=== PATIENT | male | born 1975 | race Caucasian/White ===

== ENCOUNTER → 2020-11-04 12:56 | Outpatient (CLI) | payer OTHER, SELFPAY ==
[2019-08-14 10:23] VITALS: BMI 32.2
--- NOTE | 2020-11-04 13:00 | CT_ITS ---
STUDY: CT ABDOMEN WITH CONTRAST REASON FOR EXAM: Male, 45 years old. ABD ABSCESS/INFECTION SUSPECTED RADIATION DOSAGE (If Supplied By Facility): CTDIvol = ( 16.435 ) mGy, DLP = ( 1134.92 ) mGycm TECHNIQUE: Transaxial images were obtained post I.V. administration of IV 100mL Isovue-300, and without oral contrast. Sagittal and coronal images were reconstructed. Individualized dose optimization techniques were used for this CT. COMPARISON: None. FINDINGS: The visualized lung bases are unremarkable. The visualized portions of the heart are within normal limits. There is decreased attenuation of the liver consistent with steatosis. There is a 2.1 cm by 1.1 cm hemangioma in the inferior aspect of the right lobe of the liver. Normal gallbladder and extrahepatic biliary system. Normal spleen. Normal pancreas. Normal bilateral adrenal glands. Normal right kidney. Normal left kidney. There is a small hiatal hernia. Normal small intestine. Normal colon. The appendix is visualized and appears normal. Normal abdominal aorta. Normal inferior vena cava. Normal retroperitoneum. There is an umbilical hernia containing fat. Increased markings are seen within the fat. With the patient''s history of trauma, this may be related to the trauma. Clinical correlation is recommended. Disc space narrowing and degeneration at the L5-S1 level. CT/Abdomen WITH IV Contrast IMPRESSION: Umbilical hernia containing fat with increased markings in the hernial sac. The patient has a history of trauma. This may be related to trauma although increased markings related to a trapped hernia should be ruled out. Electronically Signed: Carlos Sanabria MD at 15:52 EDT , Service support ,
== END ==
PROVIDERS: PCP Internal Medicine; Referring Provider Nurse Practitioner; Visit Provider Nurse Practitioner
DX: S39.91XA Unspecified injury of abdomen, initial encounter (principal)
CPT/HCPCS: 74160; Q9967

== ENCOUNTER 2020-11-06 11:33 | Day surgery (SDC) | payer OTHER, SELFPAY ==
[2019-08-14 10:23] VITALS: BMI 32.2
[2020-11-06] MEDS: Lactated Ringers 1,000 ML 100 ML IV ×2 (11:30→13:31)
[2020-11-06 12:08] VITALS: BP 135/86; PULSE 64; RESP 16; TEMP 36.6; O2SAT 97; BMI 33.3
--- NOTE | 2020-11-06 12:11 | PCM.HP.BLA ---
History and Physical Date of Admission: 11/06/20 HISTORY AND PHYSICAL ? Jose Govea 1975 ? ? REFERRING PHYSICIAN: Amarilis Contreras,* ? CHIEF COMPLAINT: Consult (Possible Umbilical Hernia) ? HPI: Jose is a 45 year old male with a complaint of a bulge and discomfort in his prior ventral incision. The patient notes discomfort in this area with lifting, straining and coughing. The symptoms have increased, over the past few days. ? The patient notes no symptoms of bowel obstruction and denies nausea or vomiting. The patient was seen by his primary care physician who felt the patient has a hernia. Jose was referred for evaluation and treatment. ? The patient is being seen by me today at the request of Dr. Contreras for my opinion and advice regarding Incarcerated incisional hernia (primary encounter diagnosis). ? ? PAST MEDICAL HISTORY PAST MEDICAL HISTORY Diagnosis Date ? Corneal abrasion ? ? Herniated disc ? ? Ventral hernia 07/18/14 ? ? PAST SURGICAL HISTORY PAST SURGICAL HISTORY Procedure Laterality Date ? REPAIR INCIS HERNIA W MESH ? 07/18/2014 ? ? ? CURRENT MEDICATIONS Current Outpatient Medications Medication Sig ? cefdinir (OMNICEF) 300 mg capsule ? ? gluc domínguez/chondro domínguez A/vit C/Mn (GLUCOSAMINE 1500 COMPLEX ORAL) Take by mouth. ? CREATINE, BULK, MISC ? ? Multivitamin capsule Take 1 capsule by mouth once daily. ? cyclobenzaprine (FLEXERIL) 10 mg tablet ? ? HYDROcodone-acetaminophen (NORCO) 5-325 mg per tablet ? ? No current facility-administered medications for this visit. ? ? ALLERGIES: Bees ? PERSONAL HISTORY: SOCIAL HISTORY Social History ? Tobacco Use ? Smoking status: Never Smoker ? Smokeless tobacco: Current User ? ? Types: Snuff Vaping Use ? Vaping Use: Never used Substance Use Topics ? Alcohol use: Yes ? ? Comment: OCCASIONALLY ? Drug use: No ? FAMILY HISTORY: FAMILY HISTORY FAMILY HISTORY Problem Relation Age of Onset ? Heart Father ? ? Parkinson?s Disease Father ? ? ? REVIEW OF SYMPTOMS: The review of systems data was entered by the nurse and reviewed by me ? Nursing Notes: Cielo Hughes LPN 11/05/2020 3:23 PM Signed REVIEW OF SYSTEMS: General: The patient denies fatigue, denies weight loss, denies weight gain, denies feeling hot, and denies feelings of cold. Eyes: The patient denies glaucoma, denies eye injury/surgery, does not wear glasses or contacts. Ear/Nose/Throat: The patient denies allergies, denies hayfever, denies ear infections, and denies bloody noses. Cardiovascular: The patient denies chest pain, denies heart disease, denies high blood pressure,denies cardiac stent, denies prior heart attack, denies irregular heart beat, denies high cholesterol, denies poor circulation, denies heart failure, other cardiac issues, denies claudication, denies cold feet, denies peripheral arterial stent. Respiratory: The patient denies tuberculosis, denies pneumonia, denies frequent cough, denies pulmonary embolism, denies shortness of breath, and denies coughing up blood. Gastrointestinal: The patient denies difficulty swallowing, denies acid reflux, denies ulcers, denies vomiting, denies jaundice/hepatitis, denies gallbladder problems, denies black or tarry stools, denies hemorrhoids, denies bleeding from rectum, denies diverticulitis, denies constipation, denies diarrhea, denies loss of stool control, and NOTES hernias. Kidney/Bladder: The patient denies kidney stones, denies urine infections, and denies bloody urine. Skin: The patient denies a history of skin cancer, denies bleeding/changing moles, and denies a history of skin rash. Neurologic: The patient denies a history of epilepsy/convulsions, denies headaches, denies head/spinal injuries, and denies stroke/TIA. Psychiatric: The patient denies psychiatric medications, denies depression, and denies voices, denies substance abuse. Endocrine: The patient denies thyroid disorders, denies diabetes, and denies hormonal problems. Hematologic: The patient denies a history of bruising, denies bleeding, and denies anemia, denies blood clots. Infections: The patient denies a history of measles and mumps, denies rheumatic fever, and denies sexually transmitted diseases. Musculoskeletal: The patient denies back pain/injury, denies back problems, denies sciatica, denies knee/foot trouble, denies arthritis, or denies gout. ? ? When was patient's last Mammogram screening? N/A ? Last Colonoscopy: N/A ? Cielo Hughes LPN ? PHYSICAL EXAMINATION: ? General: The patient is 45 year old male, well nourished, well hydrated in no acute distress. The patient is oriented to time, place, and person. ? VITALS: Pulse 74, temperature 36.9 ?C (98.4 ?F), height 193 cm (6' 4), weight 125.2 kg (276 lb), SpO2 98 %. Body mass index is 33.6 kg/m?. ? HEENT: Normal cephalic, ataumatic, pupils are equally round, sclera are anicteric, mucous membranes are moist, oropharynx is clear. Neck has no masses, asymmetry or lymphadenopathy. Thyroid is unremarkable. ? Respiratory: Clear to auscultation and percussion. Normal respiratory excursion and pattern. ? Cardiac: Examination is regular rate and rhythm. ? Abdominal exam: Soft, nontender, with no palpable masses. No hepatosplenomegaly. A moderate incisional hernia ? Rectal exam: exam deferred ? Extremities: no clubbing, cyanosis or edema. No adenopathy. ? Other: ? ? LABORATORY VALUES: As Noted ? RADIOLOGIC STUDIES: As Noted ? Assessment IMPRESSION: Incarcerated incisional hernia (primary encounter diagnosis) ? PLAN: My plan is to perform a incisional hernia repair with mesh. The planned surgical procedure was discussed extensively with the patient. The risks, benefits, anticipated outcomes and possible complications were mentioned. Jose baezands that all hernia repair surgery has a chance of recurrence and/or chronic post operative pain. My staff has also explained the procedure in understandable terms and the patient was given the option to take printed material concerning the planned procedure. The patient had the opportunity to ask questions concerning the planned procedure. The patient freely consents to the planned procedure. ? A letter was sent to Amarilis Contreras DO indicating the above finding for this patient. ? Diagnoses: (K43.0) Incarcerated incisional hernia (primary encounter diagnosis) ? Anticipated CPT Code: incarcerated ventral/incisional hernia repair - 54002-726 ? Anticipated Anesthetic: General ? Patient weight: Pulse 74, temperature 36.9 ?C (98.4 ?F), height 193 cm (6' 4), weight 125.2 kg (276 lb), SpO2 98 %. BMI: Body mass index is 33.6 kg/m?. ? Planned antibiotic: Ancef 2gm IVPB senior electronics design engineer to OR ? SCDs needed - Yes Return to Clinic: The patient is instructed to follow-up with me 1 week post operatively. ? COVID (Procedure Consent) Procedure Criteria ? Procedure Criteria: Yes Elective The surgeon/proceduralist and patient have discussed in detail the risk of exposure to and/or potential harm posed by the COVID-19 virus with having a surgery/procedure at this time versus the risk of? delaying the surgery/procedure. It is not possible to know either the risk of delaying the surgery or procedure or chance of getting an infection with perfect accuracy, but a joint decision was made between the patient and the surgeon/proceduralist ?to proceed at this time with the scheduled surgery/procedure as indicated on the consent form. ? ? Yadiel Oscar III, MD I have re-examined the patient. There are no clinical changes since date of exam.
[2020-11-06] MEDS: Cefazolin 2 GM in 0.9% Normal Saline 100 ML IV (13:23)
[2020-11-06] MEDS: BUPIVACAINE LIPOSOME/PF 20 ML VIAL OPERA.SITE (13:32)
--- NOTE | 2020-11-06 13:35 | HERN_PTH ---
PATIENT: ROSEMARIE BARNHART LOC[place] [facility] [place][id number] AGE/SX: 45/M ROOM: RE11/06/[address]: Dr. Yadiel Oscar MD : 1975 BED: DIS: 11/06/2020 SPEC #: [id number] RECD: 11/06/20 14:57 STATUS: FERNANDA REBay #: [id number] PAULA: 11/06/20 13:[address]: Yadiel Oscar DEPT: SURGICAL PATHOLOGY RECD BY: Laura Wharton ENTERED: 11/09/20 08:42 SP TYPE: Hernia OTHR DR: Dr. Amarilis Contreras, DO Tissues: HERNIA Procedures: Surgery Specimen Level II HEADER OPERATION: Incarcerated incisional hernia repair PRE-OP DIAGNOSIS: Incarcerated incisional hernia TISSUE SUBMITTED: Incisional hernia sac MICROSCOPIC DIAGNOSIS Incisional hernia sac, herniorrhaphy: Fibrosis and mild chronic inflammation with focal fibrinoid degeneration. AM:dahiana 11/10/2020 MICROSCOPIC DESCRIPTION Slides are reviewed. GROSS DESCRIPTION Received in fixative is one container labeled with the patient's name and designated incisional hernia sac. The specimen consists of two pieces of soft tissue measuring 5.5 x 5 x 3 cm and 2.5 x 1 x 1 cm. No mass lesion is identified. A focal area of blood clot consistent with hematoma is noted measuring 1 cm in greatest dimension. Television Inspector sections are submitted in one cassette. / SJ:dahiana 11/09/20 TC:5 CPT: 31659
--- NOTE | 2020-11-06 13:57 | PCM.OPRPT ---
Problems Associated Problem List Diagnoses (1) Incarcerated incisional hernia: Report of Operation Date of Procedure: 11/06/20 Pre-Operative Diagnosis: Incarcerated incisional hernia Post-Operative Diagnosis: Same Surgery/Procedure Performed:: Repair of incarcerated incisional hernia (no mesh) Surgeon: Yadiel Oscar Type of Anesthesia: General Anesthesiologist: Esdras Yi Estimated Blood Loss (mL): < 25 cc Description of Procedure: Patient was brought into the operating room. Placed in the supine position. Under excellent general endotracheal intubation the abdomen was sterilely prepped and draped in usual fashion. Local was injected superiorly around the umbilicus curving to the left and going up his previous midline incision. An incision was made dissection was carried down to the incarcerated hernia sac. I opened this to make sure that there was no signs of bowel there was none just fat I transected the base at this hernia sac with the harmonic dissector. I had excellent hemostasis. Hernia sac and fat was sent to pathology for permanent sectioning. Fascial edges were irrigated I injected Exparel L. I closed the fascial defect with 2 interrupted sutures of #1 Nurolon's. The umbilicus was tacked back down to the fascia with a 2-0 Vicryl. Incision was then brought together with deep dermal stitches then a running 4-0 Monocryl Steri-Strips were applied sterile dressings were applied and the patient tolerated the procedure well. I did not put any mesh in secondary to there being fat and running the risk of developing an infection was higher with this. Patient was aware that he probably will have a recurrence and we may need to repair this again at a later date. Admit VTE Documentation VTE Present on Admission: No VTE Mechan Device Prophylaxis: SCD's VTE Pharm Prophylaxis ordered?: No Reason prophylaxis not ordered:: Treatment Not Indicated
--- NOTE | 2020-11-06 14:02 | EX.PCM.DISCH ---
Discharge Instructions Procedure Hernia Diet Discharge Diet: Light diet - advance as tolerated Activity Discharge Activity: Return to Normal Activity, May Drive (when you are no longer taking narcotic pain medications.) and May Shower (with the bandage in place 1-2 days after surgery.) Lifting Restrictions: 20 pounds for 8 weeks. Additional Activity Instructions:: Climbing stairs is fine, walking is encouraged. Sitting in bed may be uncomfortable. Sitting up using your lateral muscles (sitting up sideways) is usually more comfortable. Do not drive, work heavy equipment of sign legal documents for 24 hours. If your hernia repair was an ingunial repair, you may have scrotal swelling, an ice pack and/or athletic support can provide more comfort. Pain medications may cause nausea, you should typically eat light foods as you take your pain medications. Pain medications may also cause constipation. If you have difficulty with this, discuss with your doctor. Dressing / Incision Call your doctor if your incision/area has: Continuous Slow Oozing, Sudden Increased Bleeding, Increased Pain/ Swelling, Increased Redness and Foul Smelling Discharge Call your doctor if you observe: Fever of 101 or Higher Suture Line Care: Avoid Pulling/Pushing and Avoid Pinching/Bending Additional Dressing/Incision Instructions:: Leave the operative bandage on for 2-3 days. When you remove the bandage, leave the steri-strips on place until your follow up appointment or they fall off. Follow Up Care Please Follow Up With: Adriana Guevara PA-C When: Call office to schedule an appointment to be seen in 7 days. Test Results: Test results from this visit will be discussed in further detail at your follow-up appointment, if applicable. Discharge Plan Admission Attending Provider: Yadiel Oscar Primary Care Provider: Amarilis Contreras Discharge Orders/Prescriptions Prescriptions: New oxycodone-acetaminophen [Percocet] 5-325 mg tablet 1 tab PO Q4H PRN (Reason: pain) 5 Days Qty: 20 RF: 0 Continued multivitamin capsule 1 cap PO DAILY RF: 0 glucosamine HCl 500 mg tablet 500 mg PO BID RF: 0 Referrals / Follow Up: Amarilis Contreras DO [Primary Care Provider] - Adriana Guevara PA-C [PHYSICIAN RIGGING HELPER] -
[2020-11-06 14:23] VITALS: BP 127/82; BP 135/86; PULSE 66; RESP 16; TEMP 36; O2SAT 96
[2020-11-06 14:30] VITALS: BP 128/83; BP 135/86; PULSE 67; O2SAT 97
[2020-11-06 14:45] VITALS: BP 125/85; BP 135/86; PULSE 65; RESP 16; TEMP 36.2; O2SAT 94
[2020-11-06] MEDS: BENZOCAINE/MENTHOL 1 LOZENGE 2 LOZENGE MUCOUS MEM (15:39)
[2020-11-06 16:25] VITALS: BP 134/80; BP 135/86; PULSE 56; RESP 16; TEMP 36.1; O2SAT 99
== END 2020-11-06 16:39 ==
LOC: SDC 11:34 → AC 11:35
PROVIDERS: PCP Internal Medicine; Referring Provider Surgery; Visit Provider Surgery
PROC: (CPT 49561; principal; 2020-11-06 13:20)
DX: K43.0 Incisional hernia with obstruction, without gangrene (principal); F17.220 Nicotine dependence, chewing tobacco, uncomplicated
CPT/HCPCS: 00832; 49561; 87426; 88302; J7120; J2405

== ENCOUNTER → 2021-03-09 13:38 | Outpatient (CLI) | payer OTHER, SELFPAY ==
--- NOTE | 2021-03-09 13:41 | VDLE_ITS ---
Reason For Study: LLE pain Procedure LEFT This is a venous duplex using B-mode, color CFV is compressible, spontaneous, phasic, flow and spectral Doppler. competent, and demonstrates normal Exam performed in department. augmentation. A preliminary report was called and/or faxed FV is compressible, spontaneous, phasic, to Yovana Jose Guadalupe HOSPICE MANAGER-C @ 2:05 pm @ [phone]. competent and demonstrates normal PT spoke with Yovana Shi on phone for augmentation. instructions. POP V is compressible, spontaneous, phasic, competent and demonstrates normal augmentation. T/P Trunk is compressible. PTV is compressible. LT PerV is compressible. GSV is dilated and noncompressible from ankle to 3.4 cm from SFJ. VVs were also noted to be noncopressible in the anterior calf area/proximal becerra. VL/Venous Duplex US, Unilateral Interpretation Summary Left leg with no evidence of DVT noted. Extensive SVT of the left greater saphe nous from the ankle to near the saphenofemoral junction. Multiple varicosities also noncompressible . Ordering Physician: Yovana Shi Referring Physician: Amarilis Contreras Performed By: Amanda Jang, ALLA, RVT
== END ==
PROVIDERS: PCP Internal Medicine; Referring Provider Nurse Practitioner; Visit Provider Nurse Practitioner
DX: M79.605 Pain in left leg (principal)
CPT/HCPCS: 93971

== ENCOUNTER → 2021-03-24 13:42 | Outpatient (CLI) | payer OTHER, SELFPAY ==
--- NOTE | 2021-03-24 13:46 | VDLE_ITS ---
Reason For Study: r/o DVT Procedure LEFT This is a venous duplex using B-mode, color CFV is compressible, spontaneous, phasic, flow and spectral Doppler. competent, and demonstrates normal Exam performed in department. augmentation. A preliminary report was called and/or faxed FV is compressible, spontaneous, phasic, to Yovana Shi. competent and demonstrates normal augmentation. POP V is compressible, spontaneous, phasic, competent and demonstrates normal augmentation. T/P Trunk is compressible. PTV is compressible. LT PerV is compressible. Lt SoleusV is dilated and non compressible consistent with acute DVT Lt GSV prox thigh to prox calf and Lt aterior calf varicosities are dilated and non compresisble consistent with acute SVT, some improvement from previous study on 03/09/21. VL/Venous Duplex US, Unilateral Interpretation Summary Acute deep vein thrombosis is noted in the left soleus vein. The remainder of t he left lower extremity deep venous system is patent and compressible. Valvular competence ap pears intact within the proximal deep venous system on the left . Acute superficial thrombophlebiti s is noted in the left great saphenous vein from the left proximal thigh to the left proximal marshall f. Acute superficial thrombophlebitis is noted involving superficial varicosites in the left anterio r calf. There has been development of acute deep vein thrombosis in the left soleus vein since a prior study on 03/09/2021, but some improvement in the superficial thrombophlebitis in the lef t great saphenous vein. Ordering Physician: Yovana Shi Referring Physician: Amarilis Contreras Performed By: Zoey Baxter, RDCS, RVT
== END ==
PROVIDERS: PCP Internal Medicine; Referring Provider Nurse Practitioner; Visit Provider Nurse Practitioner
DX: M79.605 Pain in left leg (principal); I80.00 Phlebitis and thrombophlebitis of superficial vessels of unspecified lower extremity
CPT/HCPCS: 93971

== ENCOUNTER 2021-06-08 08:03 | Outpatient (CLI) | payer OTHER, SELFPAY ==
--- NOTE | 2021-06-08 08:09 | VDLE_ITS ---
Reason For Study: Swelling Procedure LEFT This is a venous duplex using B-mode, color CFV is compressible, spontaneous, phasic, flow and spectral Doppler. competent, and demonstrates normal Exam performed in department. augmentation. Patient was scanned in reverse Trendelenburg FV is compressible, spontaneous, phasic, position during reflux assessment. competent and demonstrates normal augmentation. POP V is compressible, spontaneous, phasic, competent and demonstrates normal augmentation. T/P Trunk is compressible. PTV is compressible. LT PerV is compressible. SoleusV is partially compressible with bright intraluminal echoes consistent with Chronic DVT. GSV distal thigh to knee is noncompressible consistent with acute SVT. Improvement noted from previous study on 03/24/2021. . SFJ is INCOMPETENT and measures 0.98 x 0.99 cm. GSV proximal thigh measures 0.56 x 0.56 cm. GSV at knee measures 0.54 x 0.58 cm. GSV INCOMPETENT throughout for greater than 0.5 seconds. ASV mid thigh is INCOMPETENT for greater than 0.5 seconds and measures 0.54 x 0.56 cm. ASV mid calf is INCOMPETENT for greater than 0.5 seconds and measures 0.33 x 0.36 cm. SSV at junction is competent and measures 0.30 x 0.28 cm. VL/Venous Duplex US, Unilateral Interpretation Summary Left leg with chronic DVT of the soleus vein. Other deep veins are normal.Left greater saphenous measuring 9.8, 5.6, 5.8 mm with reflux throughout. Accessory saphenous measurin g 5.6 and then 3.6 with reflux throughout as well. Ordering Physician: Hal Rossi Referring Physician: Amarilis Contreras M.D. Performed By: Ludmila Monterroso RVT
== END 2021-06-08 23:59 | disposition home or self-care (01) ==
PROVIDERS: PCP Internal Medicine; Referring Provider Surgery Vascular Surgery; Visit Provider Surgery Vascular Surgery
DX: M79.89 Other specified soft tissue disorders (principal); M79.605 Pain in left leg; I83.892 Varicose veins of left lower extremity with other complications; Z86.718 Personal history of other venous thrombosis and embolism
CPT/HCPCS: 93971

== ENCOUNTER → 2022-10-24 | Outpatient (CLI) | payer BC, SELFPAY ==
--- NOTE | 2022-10-24 15:58 | VDLE_ITS ---
Reason For Study: Rt Leg Swelling RIGHT LEFT GSV is normal. CFV is compressible, spontaneous, phasic, CFV is compressible, spontaneous, phasic, competent, and demonstrates normal competent and demonstrates normal augmentation. augmentation. FV is compressible, spontaneous, phasic, competent and demonstrates normal augmentation. POP V is compressible, spontaneous, and phasic. T/P Trunk is compressible. PTV is compressible. RT PerV is compressible. Acute deep vein thrombosis is noted in the Soleus Vein. It is dilated and NONCOMPRESSIBLE. A hypoechoic non-vascularized area is noted in the Rt Medial Gastrocnemius muscle. The area measures approximately 2.2cm x 1.3cm. Procedure This is a venous duplex using B-mode, color flow and spectral Doppler. Exam performed in department. The exam was diagnostic. A preliminary report was called and/or faxed to Amarilis Grfa RN at [facility] (Dr. Contreras). VL/Venous Duplex US, Unilateral Interpretation Summary Acute deep vein thrombosis is noted in the right soleus vein. Ordering Physician: Amarilis Contreras Referring Physician: Amarilis Contreras Performed By: Tyler Hubbard RVT
== END | disposition home or self-care (01) ==
PROVIDERS: PCP Internal Medicine; Referring Provider Internal Medicine; Visit Provider Internal Medicine
DX: M79.661 Pain in right lower leg (principal)
CPT/HCPCS: 93971